=== PATIENT | male | born 1975 | race Caucasian/White ===

== ENCOUNTER 2017-03-25 20:29 | Emergency (ER) | payer OTHER ==
[~2017-03-25] VITALS: Ht 170.2 cm; Wt 79.8 kg
--- NOTE | 2017-03-25 20:39 | PHYS DOC ---
Past History Past Medical History: No Pertinent History Past Surgical History: No Surgical History Smoking: Non-smoker Alcohol Use: None Drug Use: None Adult General Chief Complaint Chief Complaint: BACK PAIN OR INJURY HPI HPI Patient is a 42 year old male who presents with back pain. He awakened at 10:00 am and was getting up yesterday and noticed pain in the mid back area; bilaterally. No radiation. It was positional. It doesn't seem to be getting better. No numbness, tingling, weakness of his arms or legs. No difficulty breathing. No chest pain. No shortness of air. No fever. No urinary complaints, no burning or blood in his urine. No nausea vomiting or diarrhea. No stomach pain. No saddle anesthesia. No changes in his bowel or bladder habits. No known trauma. Has had prior back pain and sciatica in the past. He is ex . Review of Systems Review of Systems Constitutional: Denies fever or chills Eyes: Denies change in visual acuity, redness, or eye pain HENT: Denies nasal congestion or sore throat Respiratory: Denies cough or shortness of breath Cardiovascular: No chest pain. GI: Denies abdominal pain, nausea, vomiting, bloody stools or diarrhea : Denies dysuria or hematuria Musculoskeletal: see HPI Integument: Denies rash or skin lesions Neurologic: Denies headache, focal weakness or sensory changes, no bowel bladder changes, no saddle anesthesia. Endocrine: Denies polyuria or polydipsia Allergies Allergies Allergies Coded Allergies Type Severity Reaction Last Updated Verified No Known Drug Allergies 04/26/14 No Physical Exam Physical Exam Constitutional: Well developed, well nourished, no acute distress, non-toxic appearance. Neck: Normal range of motion, no tenderness, supple, no stridor. Cardiovascular:Heart rate regular rhythm, no murmur Lungs & Thorax: Bilateral breath sounds clear to auscultation Abdomen: Bowel sounds normal, soft, no tenderness, no masses, no pulsatile masses. Skin: Warm, dry, no erythema, no rash. Back: No midline tenderness, no CVA tenderness. Pain along both latissimus dorsi muscle regions. No skin changes (no lesions or vesicles). No swelling or redness. Extremities: No tenderness, no cyanosis, no clubbing, ROM intact, no edema. Neurologic: Alert and oriented X 3, normal motor function, normal sensory function, no focal deficits noted. Gait normal. Psychologic: Affect normal, judgement normal, mood normal. Current Patient Data Vital Signs BP 147/87 Course & Med Decision Making Course & Med Decision Making [facility]TRACS shows no activity. Exam benign and consistent with muscle spasm. He has elevated blood pressure but does not carry a dx of HTN. [place] He was given precautions and informed that if he has any change in symptoms to seek re- evaluation immediately. No evidence of cauda equina syndrome. Dragon Disclaimer Dragon Disclaimer This chart was dictated in whole or in part using Voice Recognition software in a busy, high-work load, and often noisy Emergency Department environment. It may contain unintended and wholly unrecognized errors or omissions. Departure Departure: Impression: Primary Impression: Upper back strain Additional Impression: Elevated blood pressure reading Disposition: HOME, SELF-CARE Condition: GOOD Referrals: KARIE HAWK (PCP) Patient Instructions: Form - Blood Pressure Record Sheet, How to Take Your Blood Pressure, [id number], Low Back Strain with Rehab-[facility], Thoracic Strain Additional Instructions: YOUR BLOOD PRESSURE WAS SLIGHTLY ELEVATED HERE; PLEASE HAVE IT RECHECKED IN THE OFFICE TO DETERMINE IF YOU NEED PRINT SH[employer] HELPER TREATMENT FOR IT. YOUR FINDINGS ARE CONSISTENT WITH MUSCLE STRAIN. IF YOU DEVELOP ANY NEW SYMPTOMS OR CHANGE IN YOUR SYMPTOMS YOU NEED IMMEDIATE RE-EVALUATION. LIMIT HEAVY LIFTING. Scripts Tizanidine Hcl (ZANAFLEX) 4 Mg Tablet 4 MG PO PRN [id number] Y for MUSCLE SPASMS, #20 TAB Prov: TRISTEN YUN MD 03/25/17 Naproxen (NAPROSYN) 500 Mg Tablet 1 TAB PO BID, #30 TAB 1 Refill Prov: TRISTEN YUN MD 03/25/17 Problem Qualifiers Primary Impression: Upper back strain Encounter type: initial encounter Qualified Codes: S29.012A - Strain of muscle and tendon of back wall of thorax, initial encounter TRISTEN YUN MD Mar 25, 2017 20:39
[2017-03-25 20:40] VITALS: BP 147/87
[2017-03-25] MEDS ORDERED: NAPR500T PO (20:53)
[2017-03-25] MEDS ORDERED: TIZA4TAB8 PO (20:53)
== END 2017-03-25 21:15 | disposition home or self-care (01) ==
LOC: ER 20:29
DX: S29.012A Strain of muscle and tendon of back wall of thorax, initial encounter (principal); R03.0 Elevated blood-pressure reading, without diagnosis of hypertension; X58.XXXA Exposure to other specified factors, initial encounter; Y93.89 Activity, other specified; Y99.8 Other external cause status; Y92.89 Other specified places as the place of occurrence of the external cause
CPT/HCPCS: 99283